=== PATIENT | male | born 1960 | race Caucasian/White ===

== ENCOUNTER 2016-09-29 08:34 | Emergency (ER) | payer OTHER ==
[~2016-09-29] VITALS: Ht 177.8 cm; Wt 83.0 kg
[~2016-09-29 08:34] MED LIST: HYDROCODONE BIT1 T11 PO; HYDROXYCHLOROQ200 MG PO; METHOTREXATE2.5 MG PO; NAPROSYN500 MG PO; NEXIUM20 MG PO; PREDNICOT20 MG PO; VOLTAREN50 MG PO
[2016-09-29] MEDS ORDERED: HYDROXYCHLOROQ200 M1 PO (08:40)
[2016-09-29] MEDS ORDERED: LEFLUNOMIDE10 M1 PO (08:41)
[2016-09-29] MEDS ORDERED: MELOXICAM15 MG PO (08:41)
[2016-09-29] MEDS ORDERED: MILLIPRED5 MG PO (08:41)
[2016-09-29] MEDS ORDERED: PREDNISONE10 MG PO (09:26)
== END 2016-09-29 10:10 | disposition home or self-care (01) ==
LOC: ED 08:34
DX: M06.80 Other specified rheumatoid arthritis, unspecified site (principal); R03.0 Elevated blood-pressure reading, without diagnosis of hypertension; F17.200 Nicotine dependence, unspecified, uncomplicated; Z79.899 Other long term (current) drug therapy

== ENCOUNTER 2019-05-24 14:12 | Emergency (ER) | payer OTHER ==
[~2019-05-24] VITALS: Ht 177.8 cm; Wt 81.6 kg
[~2019-05-24 14:12] MED LIST changes: +HYDROXYCHLOROQ200 M1 PO; +LEFLUNOMIDE10 M1 PO; +MELOXICAM15 MG PO; +MILLIPRED5 MG PO; +PREDNISONE10 MG PO
== END 2019-05-24 17:15 | disposition home or self-care (01) ==
LOC: ED 14:12
DX: S86.911A Strain of unspecified muscle(s) and tendon(s) at lower leg level, right leg, initial encounter (principal); Z79.899 Other long term (current) drug therapy; X58.XXXA Exposure to other specified factors, initial encounter; Y93.89 Activity, other specified; Y92.89 Other specified places as the place of occurrence of the external cause; Y99.8 Other external cause status